=== PATIENT | female | born 1990 | race African-American/Black ===

== ENCOUNTER 2024-02-17 21:51 | Inpatient (IN) | payer OTHER ==
[2024-02-17 22:27] VITALS: BMI 21.7
[2024-02-17] MEDS ORDERED: NALOXONE HCL (KLOXXADO) 8 MG SPRAY NS PRN (23:32)
[2024-02-17] MEDS ORDERED: BENZOCAINE/MENTHOL (CHLORASEPTIC ) LOZENGE MM PRN (23:32)
[2024-02-17] MEDS ORDERED: LOPERAMIDE HCL 2 MG CAPSULE PO PRN (23:32)
[2024-02-17] MEDS ORDERED: MAG HYDROX/AL HYDROX/SIMETH 30 ML UNIT-DOSE CUP PO PRN (23:32)
[2024-02-17] MEDS ORDERED: NALOXONE HCL 0.4 MG/ML VIAL IM PRN (23:32)
[2024-02-17] MEDS ORDERED: DICYCLOMINE HCL 10 MG CAPSULE PO PRN (23:32)
[2024-02-17] MEDS ORDERED: BENZONATATE 200 MG CAPSULE PO PRN (23:32)
[2024-02-17] MEDS ORDERED: MAGNESIUM HYDROX 2400MG/30ML ORAL SUSPENSION 30 ML CUP PO PRN (23:32)
[2024-02-17] MEDS ORDERED: NICOTINE POLACRILEX 2 MG GUM BUC PRN (23:32)
[2024-02-17] MEDS ORDERED: guaiFENesin 600 MG TABLET.ER (FP) PO PRN (23:32)
[2024-02-17] MEDS ORDERED: ONDANSETRON *ODT* 4 MG TABLET SL PRN (23:32)
[2024-02-17] MEDS ORDERED: POLYETHYLENE GLYCOL (HEALTHYLAX) 3350 17 GM PACKET PO PRN (23:32)
[2024-02-17] MEDS ORDERED: IBUPROFEN 400 MG TABLET (FP) PO PRN (23:32)
[2024-02-17] MEDS ORDERED: BISMUTH SUBSALICYLATE 524 MG/30 ML PO PRN (23:32)
[2024-02-18] MEDS ORDERED: hydrOXYzine PAMOATE 25 MG CAPSULE (FP) PO ONE (03:25)
[2024-02-18] MEDS: hydrOXYzine PAMOATE 25 MG CAPSULE (FP) PO PRN (03:27)
[2024-02-18] MEDS ORDERED: chlordiazePOXIDE HCL 25 MG CAPSULE PO PRN (04:12)
[2024-02-18] MEDS ORDERED: ALBUTEROL SO4 HFA INHALER IH PRN (04:13)
[2024-02-18] MEDS: METHOCARBAMOL 500 MG TABLET PO PRN (06:19)
[2024-02-18] MEDS: chlordiazePOXIDE HCL 25 MG CAPSULE PO ONE (06:19)
[2024-02-18] MEDS: chlordiazePOXIDE HCL 25 MG CAPSULE PO SCH (07:00)
[2024-02-18] MEDS: ACETAMINOPHEN 325 MG TABLET (FP) PO PRN (07:20)
[2024-02-18] MEDS: ALBUTEROL SO4 HFA INHALER IH SCH (09:33)
[2024-02-18] MEDS: ALBUTEROL SO4 2.5/IPRATROPIUM 0.5 INH SOL 3 ML VIAL.NEB. NEB ONE (09:34)
[2024-02-18] MEDS: levETIRAcetam 500 MG TABLET (FP) PO SCH (10:45)
[2024-02-18] MEDS: PRENATAL VITAMINS W/ FOLIC ACID TABLET (FP) PO SCH (10:45)
[2024-02-18] MEDS: NICOTINE 21 MG/24 HOURS TOPICAL PATCH TD SCH (10:45)
[2024-02-18] MEDS: IBUPROFEN 600 MG TABLET (FP) PO PRN (12:00)
[2024-02-18 12:01] LABS: HEMATOCRIT 32.5 % (32.4-45.2); HEMOGLOBIN 10.3 GM/dL (10.7-15.3); MCH 27.2 pg (25.7-33.7); MCHC 31.7 g/dl (32.0-36.0); MEAN CELL VOLUME 85.6 fl (80-96); MEAN PLT VOLUME 8.8 fl (7.5-11.1); PLATELET COUNT 260 10^3/uL (134-434); RDW 16.4 % (11.6-15.6); WHITE BLOOD COUNT 14.7 K/mm3 (4.0-10.0)
[2024-02-18] MEDS: predniSONE 20 MG TABLET (UD) PO ONE (12:02)
[2024-02-18] MEDS: PANTOPRAZOLE 40 MG TABLET PO SCH (12:02)
[2024-02-18 12:03] LABS: CHLORIDE 99 mmol/L (98-107); POTASSIUM 3.1 mmol/L (3.5-5.1); SODIUM 136 mmol/L (136-145)
[2024-02-18 12:06] LABS: ALBUMIN 2.6 g/dl (3.4-5.0); ANION GAP 11 mmol/L (4-13); CALCIUM 8.5 mg/dL (8.5-10.1); CO2 26 mmol/L (21-32)
[2024-02-18] MEDS: BUDESONIDE/FORMETEROL FUMARATE 160/4.5 mcg INHALER IH SCH (12:06)
[2024-02-18 12:07] LABS: GLUCOSE,RANDOM 125 mg/dL (74-106)
[2024-02-18 12:10] LABS: CREATININE 0.7 mg/dL (0.55-1.3)
[2024-02-18 12:11] LABS: TOT PROT 6.1 g/dl (6.4-8.2)
[2024-02-18 12:13] LABS: ALK PHOS 97 U/L (45-117); SGOT/AST 22 U/L (15-37); SGPT/ALT 24 U/L (13-61)
[2024-02-18 13:33] VITALS: BP 116/68; PULSE 135; RESP 17; TEMP 97.7
[2024-02-18] MEDS: MELATONIN 5 MG TABLETS PO SCH (22:55)
[2024-02-18] MEDS: THIAMINE HCL 100 MG TABLET (FP) PO SCH (22:55)
[2024-02-19] MEDS ORDERED: chlordiazePOXIDE HCL 25 MG CAPSULE PO SCH (05:00)
[2024-02-20] MEDS ORDERED: chlordiazePOXIDE HCL 10 MG CAPSULE PO PRN
[2024-02-20] MEDS ORDERED: chlordiazePOXIDE HCL 10 MG CAPSULE PO SCH (05:00)
[2024-02-21] MEDS ORDERED: chlordiazePOXIDE HCL 10 MG CAPSULE PO SCH (05:00)
[2024-02-22] MEDS ORDERED: chlordiazePOXIDE HCL 10 MG CAPSULE PO ONE (05:00)
== END 2024-02-18 23:44 | disposition short-term general hospital (02) | DRG 774 ==
LOC: YASAS 21:51 → Y3N 02-18 02:05
PROVIDERS: ADMIT Allergy & Immunology; ATTEND Surgery
PROC: HZ2ZZZZ Detoxification Services for Substance Abuse Treatment (ICD-10-PCS; principal; 2024-02-18)
DX: F10.20 Alcohol dependence, uncomplicated (principal); F14.20 Cocaine dependence, uncomplicated; F15.20 Other stimulant dependence, uncomplicated; F31.9 Bipolar disorder, unspecified; J44.1 Chronic obstructive pulmonary disease with (acute) exacerbation; Z59.00 Homelessness unspecified
CPT/HCPCS: 36415; 80053; 80305; 80307; 81025; 85027; 86780; 87811; 93005; 93010; 94640

== ENCOUNTER 2024-02-18 13:44 | Inpatient (IN) | payer OTHER ==
[2024-02-18] MEDS ORDERED: MAGNESIUM SULFATE IN WATER 2 GM/50 ML IVPB IVPB ONE (15:02)
[2024-02-18] MEDS ORDERED: ALBUTEROL SO4 2.5/IPRATROPIUM 0.5 INH SOL 3 ML VIAL.NEB. NEB ONE ×2 (15:02→20:04)
[2024-02-18] MEDS: MAGNESIUM SULF 50% (8.12 MEQ/2 ML-1 GM VIAL) IVPB ONE (15:35)
[2024-02-18] MEDS: ALBUTEROL SO4 2.5/IPRATROPIUM 0.5 INH SOL 3 ML VIAL.NEB. NEB SCH ×2 (15:35→20:24)
[2024-02-18 15:53] LABS: VENOUS BASE EXCESS 4.9 mmol/L (-2-2); VENOUS O2 SATURATION 96.7 % (70-80); VENOUS PCO2 42.2 mmHg (38-52); VENOUS PH 7.458 (7.310-7.410)
[2024-02-18 15:54] LABS: INR 1.17 (0.83-1.09); PROTHROMBIN TIME (PATIENT) 13.6 SEC (9.7-13.0)
[2024-02-18 15:56] LABS: HEMATOCRIT 35.1 % (32.4-45.2); HEMOGLOBIN 11.2 GM/dL (10.7-15.3); MCH 26.9 pg (25.7-33.7); MCHC 31.9 g/dl (32.0-36.0); MEAN CELL VOLUME 84.4 fl (80-96); MEAN PLT VOLUME 8.9 fl (7.5-11.1); PLATELET COUNT 271 10^3/uL (134-434); RBC 4.17 M/mm3 (3.60-5.2); RDW 16.5 % (11.6-15.6); WHITE BLOOD COUNT 18.6 K/mm3 (4.0-10.0)
[2024-02-18 15:57] LABS: ACTIVATED PTT 27.4 SECONDS (25.2-36.5)
[2024-02-18 16:20] LABS: POTASSIUM 3.2 mmol/L (3.5-5.1)
[2024-02-18 16:22] LABS: CALCIUM 9.1 mg/dL (8.5-10.1)
[2024-02-18 16:23] LABS: ALBUMIN 2.7 g/dl (3.4-5.0); BLOOD UREA NITROGEN 8.9 mg/dL (7-18); MAGNESIUM 1.3 mg/dL (1.8-2.4)
[2024-02-18 16:26] LABS: CREATININE 0.8 mg/dL (0.55-1.3)
[2024-02-18 16:28] LABS: BILIRUBIN,TOTAL 1.3 mg/dL (0.2-1); TOT PROT 6.5 g/dl (6.4-8.2)
[2024-02-18 16:30] LABS: ANISOCYTOSIS 1+; MACROCYTOSIS 0; TARGET CELLS 1+
[2024-02-18] MEDS ORDERED: CEFTRIAXONE 1 GM/50 ML BAG ONE (17:28)
[2024-02-18] MEDS ORDERED: POTASSIUM CHLORIDE ORAL LIQUID 20 MEQ/15 ML ONE (17:31)
[2024-02-18] MEDS: POTASSIUM CHLORIDE ORAL LIQUID 20 MEQ/15 ML PO ONE (17:37)
[2024-02-18] MEDS: CEFTRIAXONE 1,000 MG in DEXTROSE 5%-WATER - 50 ML IVPB ONE (17:37)
[2024-02-18] MEDS ORDERED: AZITHROMYCIN IVPB 500 MG/250 ML BAG IVPB ONE (18:17)
[2024-02-18] MEDS: AZITHROMYCIN IVPB 500 MG in DEXTROSE 5%-WATER - 250 ML IVPB ONE (18:21)
[2024-02-18] MEDS ORDERED: chlordiazePOXIDE HCL 25 MG CAPSULE PO PRN (18:46)
[2024-02-18] MEDS: LACTATED RINGERS SOLUTION 1000 ML INFUS.BAG IV ONE (18:51)
[2024-02-18] MEDS ORDERED: THIAMINE HCL 200 MG/2 ML VIAL ONE (18:56)
[2024-02-18] MEDS: THIAMINE HCL 200 MG/2 ML VIAL IVPB SCH (19:00)
[2024-02-18] MEDS ORDERED: methylPREDNISolone NA SUCC 40 MG/1 ML VIAL ONE (20:04)
[2024-02-18] MEDS: methylPREDNISolone NA SUCC 40 MG/1 ML VIAL IVPUSH ONE (20:06)
[2024-02-18] MEDS ORDERED: levETIRAcetam 500 MG/5 ML INJECTION VIAL IVPB ONE (22:31)
[2024-02-18] MEDS: levETIRAcetam 500 MG/5 ML INJECTION VIAL IVPB SCH (22:38)
[2024-02-19 00:53] VITALS: BMI 24.9
[2024-02-19] MEDS: chlordiazePOXIDE HCL 25 MG CAPSULE PO SCH (05:54)
[2024-02-19 09:26] VITALS: BP 109/63; PULSE 116; RESP 19; TEMP 98.8
[2024-02-19] MEDS: CEFTRIAXONE 1 GM in DEXTROSE 5%-WATER - 50 ML IVPB SCH (09:32)
[2024-02-19] MEDS: ENOXAPARIN NA (PORCINE) 40 MG/0.4 ML DISP.SYRIN SQ SCH (09:32)
[2024-02-19] MEDS: predniSONE 20 MG TABLET (UD) PO SCH (09:33)
[2024-02-19] MEDS: AZITHROMYCIN 250 MG TABLET PO SCH (09:33)
[2024-02-19] MEDS: FOLIC ACID 1 MG TABLET (FP) PO SCH (09:33)
[2024-02-19] MEDS: MULTIVITAMINS (DAILY MVI) TABLET (FP) PO SCH (09:33)
[2024-02-19] MEDS ORDERED: BUDESONIDE/FORMETEROL FUMARATE 160/4.5 mcg INHALER IH SCH (10:00)
[2024-02-19 10:07] LABS: HEMATOCRIT 35.1 % (32.4-45.2); MCH 27.1 pg (25.7-33.7); MCHC 31.3 g/dl (32.0-36.0); MEAN CELL VOLUME 86.8 fl (80-96); MEAN PLT VOLUME 8.9 fl (7.5-11.1); PLATELET COUNT 218 10^3/uL (134-434); RBC 4.04 M/mm3 (3.60-5.2); RDW 16.9 % (11.6-15.6)
[2024-02-19 10:25] LABS: POTASSIUM 3.2 mmol/L (3.5-5.1)
[2024-02-19 10:29] LABS: CALCIUM 9.6 mg/dL (8.5-10.1)
[2024-02-19 10:30] LABS: BLOOD UREA NITROGEN 10.2 mg/dL (7-18); MAGNESIUM 1.7 mg/dL (1.8-2.4)
[2024-02-19 10:33] LABS: CREATININE 0.6 mg/dL (0.55-1.3); PHOSPHOROUS 2.9 mg/dL (2.5-4.9)
[2024-02-20] MEDS ORDERED: chlordiazePOXIDE HCL 25 MG CAPSULE PO SCH (05:00)
[2024-02-21] MEDS ORDERED: chlordiazePOXIDE HCL 10 MG CAPSULE PO PRN
[2024-02-21] MEDS ORDERED: chlordiazePOXIDE HCL 10 MG CAPSULE PO SCH (05:00)
[2024-02-22] MEDS ORDERED: chlordiazePOXIDE HCL 10 MG CAPSULE PO SCH (05:00)
[2024-02-23] MEDS ORDERED: chlordiazePOXIDE HCL 10 MG CAPSULE PO ONE (05:00)
== END 2024-02-19 11:44 | disposition other institution (70) | DRG 141 ==
LOC: JER 13:44 → JERBED 17:12 → J5S 23:46
PROVIDERS: ADMIT Internal Medicine; ATTEND Internal Medicine
DX: J45.901 Unspecified asthma with (acute) exacerbation (principal); F31.9 Bipolar disorder, unspecified; F17.200 Nicotine dependence, unspecified, uncomplicated; F19.10 Other psychoactive substance abuse, uncomplicated; F42.9 Obsessive-compulsive disorder, unspecified; F43.10 Post-traumatic stress disorder, unspecified; R09.02 Hypoxemia
CPT/HCPCS: 0241U-QW; 36415; 71045-TC-FY; 80048; 80053; 82803; 83735; 84100; 84443; 85025; 85027; 85379; 85610; 85730; 93005; 93010; 94150; 94640; 99285-25

== ENCOUNTER 2024-02-19 12:33 | Inpatient (IN) | payer OTHER ==
[2024-02-19 12:49] VITALS: BMI 23.1
[2024-02-19] MEDS ORDERED: MAG HYDROX/AL HYDROX/SIMETH 30 ML UNIT-DOSE CUP PO PRN (13:01)
[2024-02-19] MEDS ORDERED: ONDANSETRON *ODT* 4 MG TABLET SL PRN (13:01)
[2024-02-19] MEDS ORDERED: POLYETHYLENE GLYCOL (HEALTHYLAX) 3350 17 GM PACKET PO PRN (13:01)
[2024-02-19] MEDS ORDERED: NALOXONE HCL (KLOXXADO) 8 MG SPRAY NS PRN (13:01)
[2024-02-19] MEDS ORDERED: IBUPROFEN 400 MG TABLET (FP) PO PRN (13:01)
[2024-02-19] MEDS ORDERED: IBUPROFEN 600 MG TABLET (FP) PO PRN (13:01)
[2024-02-19] MEDS ORDERED: MAGNESIUM HYDROX 2400MG/30ML ORAL SUSPENSION 30 ML CUP PO PRN (13:01)
[2024-02-19] MEDS ORDERED: guaiFENesin 600 MG TABLET.ER (FP) PO PRN (13:01)
[2024-02-19] MEDS ORDERED: BENZONATATE 200 MG CAPSULE PO PRN (13:01)
[2024-02-19] MEDS ORDERED: BISMUTH SUBSALICYLATE 524 MG/30 ML PO PRN (13:01)
[2024-02-19] MEDS ORDERED: DICYCLOMINE HCL 10 MG CAPSULE PO PRN (13:01)
[2024-02-19] MEDS ORDERED: NALOXONE HCL 0.4 MG/ML VIAL IM PRN (13:01)
[2024-02-19] MEDS ORDERED: LOPERAMIDE HCL 2 MG CAPSULE PO PRN (13:01)
[2024-02-19] MEDS ORDERED: diazePAM 5 MG TABLET ONE (13:16)
[2024-02-19] MEDS: diazePAM 5 MG TABLET PO PRN (13:32)
[2024-02-19] MEDS: NICOTINE 14 MG/24 HOURS TOPICAL PATCH TD SCH (13:33)
[2024-02-19] MEDS: PRENATAL VITAMINS W/ FOLIC ACID TABLET (FP) PO SCH (13:36)
[2024-02-19] MEDS: BUDESONIDE/FORMETEROL FUMARATE 160/4.5 mcg INHALER IH SCH (14:21)
[2024-02-19] MEDS: PANTOPRAZOLE 40 MG TABLET PO SCH (14:21)
[2024-02-19] MEDS: diazePAM 5 MG TABLET PO SCH (17:38)
[2024-02-19] MEDS: ACETAMINOPHEN 325 MG TABLET (FP) PO PRN (17:38)
[2024-02-19] MEDS: traZODone HCL 50 MG TABLET (FP) PO SCH (22:18)
[2024-02-19] MEDS: THIAMINE HCL 100 MG TABLET (FP) PO SCH (22:18)
[2024-02-19] MEDS: METHOCARBAMOL 500 MG TABLET PO PRN (22:18)
[2024-02-19] MEDS: levETIRAcetam 500 MG TABLET (FP) PO SCH (22:18)
[2024-02-19] MEDS: QUEtiapine FUMARATE 50 MG TABLET PO SCH (22:18)
[2024-02-19] MEDS: MELATONIN 5 MG TABLETS PO SCH (22:18)
[2024-02-20] MEDS: diazePAM 5 MG TABLET PO SCH (07:00)
[2024-02-20] MEDS: predniSONE 20 MG TABLET (UD) PO SCH (10:09)
[2024-02-20] MEDS: ALBUTEROL SO4 HFA INHALER IH PRN (14:33)
[2024-02-20] MEDS: ALBUTEROL SO4 2.5/IPRATROPIUM 0.5 INH SOL 3 ML VIAL.NEB. NEB ONE (15:07)
[2024-02-20] MEDS: BENZOCAINE/MENTHOL (CHLORASEPTIC ) LOZENGE MM PRN (18:15)
[2024-02-20] MEDS: NICOTINE POLACRILEX 2 MG GUM BUC PRN (22:25)
[2024-02-21] MEDS: diazePAM 5 MG TABLET PO SCH (05:35)
[2024-02-21] MEDS: hydrOXYzine PAMOATE 25 MG CAPSULE (FP) PO PRN (17:18)
[2024-02-22] MEDS: diazePAM 5 MG TABLET PO ONE (05:47)
[2024-02-22 06:20] VITALS: RESP 16
[2024-02-22 09:46] VITALS: BP 115/80; PULSE 102; TEMP 97.7
== END 2024-02-22 11:24 | disposition home or self-care (01) | DRG 774 ==
LOC: YASAS 12:33 → Y3N 13:14
PROVIDERS: ADMIT Allergy & Immunology; ATTEND Surgery
PROC: HZ2ZZZZ Detoxification Services for Substance Abuse Treatment (ICD-10-PCS; principal; 2024-02-19)
DX: F10.230 Alcohol dependence with withdrawal, uncomplicated (principal); F14.20 Cocaine dependence, uncomplicated; F15.10 Other stimulant abuse, uncomplicated; F12.20 Cannabis dependence, uncomplicated; F17.210 Nicotine dependence, cigarettes, uncomplicated; F31.9 Bipolar disorder, unspecified; F19.24 Other psychoactive substance dependence with psychoactive substance-induced mood disorder; J45.901 Unspecified asthma with (acute) exacerbation; Z86.59 Personal history of other mental and behavioral disorders; Z88.8 Allergy status to other drugs, medicaments and biological substances
CPT/HCPCS: 94640